=== PATIENT | female | born 1935 | race Caucasian/White ===

== ENCOUNTER 2022-05-21 14:37 | Emergency (ER) | payer OTHER, SELFPAY ==
--- NOTE | ~2022-05-21 | XR_ITS ---
XR chest 2V DATE: 05/21/2022 15:28 INDICATION: Diminished breath sounds, right lower lung TECHNIQUE: 2 views COMPARISON: None FINDINGS: Cardiomegaly. Aortic calcification. Mild bilateral apical capping. Bilateral hyperinflation, suggesting COPD; the elderly chest considerably this appearance. No pulmonary infiltrate or consolidation, pleural effusion or pulmonary vascular congestion or pneumo thorax is evident. Osteopenia. Healed posterolateral left sixth rib fracture. Posterior left seventh rib fracture of uncertain age. Osteopenia. Thoracic and lumbar scoliosis IMPRESSION: Bilateral hyperinflation suggesting COPD Cardiac megaly Aortic atherosclerosis Reviewed, dictated and finalized at location B.
--- NOTE | 2022-05-21 14:41 | ED.URI ---
HPI - URI/Sore Throat General Chief Complaint: Upper Respiratory Infection Stated Complaint: sore throat fever Time Seen by Provider: 05/21/22 14:43 Source: patient and RN notes reviewed History of Present Illness HPI Narrative: Patient and old female who presents to Urgent Care with exam under with complaints of a fever and sore throat. Patient states that her symptoms started on Saturday. Patient states she noticed a rash and hydration at of bothering her. Patient has been taking Tylenol. Patient denies any nausea, vomiting, abdominal pain or shortness of breath. No other acute complaints. No acute distress noted. Patient aware of the plan care. Some parts of this dictation were generated by voice recognition software and may contain typographical and/or grammatical inaccuracies. Related Data Home Medications Medication Instructions Recorded Confirmed atorvastatin 10 mg tablet mg 05/21/22 furosemide 20 mg tablet mg 05/21/22 losartan 25 mg tablet mg 05/21/22 metoprolol succinate 50 mg mg PO 05/21/22 tablet,extended release 24 hr pantoprazole 40 mg tablet,delayed mg PO 05/21/22 release Allergies Allergy/AdvReac Type Severity Reaction Status Date / Time ciprofloxacin Allergy Verified 02/28/13 16:04 Sulfa (Sulfonamide Allergy Verified 02/28/13 16:04 Antibiotics) CIPROFLOXACIN HCL Allergy Uncoded 02/28/13 16:04 Review of Systems Review of Systems: CONSTITUTIONAL: Reports fever chills EYES: Denies visual changes, redness, or discharge. ENT: Denies rhinorrhea, congestion, otalgia. Please sore CARDIOVASCULAR: Denies chest pain, palpitations, or edema. RESPIRATORY: Denies cough or dyspnea. GASTROINTESTINAL: Denies abdominal pain, nausea, vomiting, or diarrhea. GENITOURINARY: Denies dysuria or hematuria. SKIN: Denies rash or itching. MUSCULOSKELETAL: Denies back pain, joint pain, or myalgia. NEUROLOGIC: Denies headache, numbness, or weakness. All other systems reviewed are negative, except as documented in HPI. PMFSH Comments At the time of my signature, I reviewed and agree with the nursing past medical, surgical, social, and family history. There is no relevant family history pertinent to the patient complaint. Exam Narrative: GENERAL: This is a well-nourished, well-developed patient, in no apparent distress. HEAD: normocephalic, atraumatic. EYES: PERRL. Sclera clear/white. Vision is grossly intact. EARS: External ears normal, auditory canals clear and without drainage, TMs normal without perforation. Hearing grossly intact. NOSE: External nose normal with no obvious nasal discharge, nares without redness, no rhinorrhea. THROAT: Mucous membranes moist, posterior pharynx clear. Minor postnasal drainage NECK: Neck supple\ RESPIRATORY: Clear to auscultation. Diminished right lower lung sounds pain on deep breathing SKIN: warm, intact with no suspicious lesions or rash, good texture and turgor. NEURO: awake, alert, and oriented to person, place and time. There were no obvious focal neurologic abnormalities. EXTREMITIES: No clubbing, cyanosis, or edema. Course Course Level of Care: Express Care Visit Vital Signs Vital signs: Vital Signs Temperature 100.6 F H 05/21/22 14:52 Pulse Rate 96 05/21/22 14:52 Respiratory Rate 36 H 05/21/22 14:52 Blood Pressure 159/69 H 05/21/22 14:52 Pulse Oximetry 96 05/21/22 14:52 Oxygen Delivery Room Air 05/21/22 14:52 Temperature 100.6 F H 05/21/22 14:52 Pulse Rate 96 05/21/22 14:52 Respiratory Rate 36 H 05/21/22 14:52 Blood Pressure 159/69 H 05/21/22 14:52 Pulse Oximetry 96 05/21/22 14:52 Oxygen Delivery Room Air 05/21/22 14:52 Reviewed- Patient is informed that they may have pre-hypertension or hypertension based on a blood pressure reading in the department. I recommend the patient call the primary care provider listed on their discharge instructions or a physician of their choice this week to arrange follow-up for
[2022-05-21 14:52] VITALS: BP 159/69; PULSE 96; RESP 36; TEMP 38.1; O2SAT 96
--- NOTE | 2022-05-21 15:59 | PC.NURSE ---
Temp rechecked 102.2 per temporal thermometer.
== END 2022-05-21 16:27 | disposition short-term general hospital (02) ==
PROVIDERS: Emergency Provider Nurse Practitioner Family
DX: R50.9 Fever, unspecified (principal); Z20.822 Contact with and (suspected) exposure to COVID-19
CPT/HCPCS: 71046; 81003; 87081; 87426; 87804; 87880; 99203; C9803; G0463